=== PATIENT | female | born 1985 | race Caucasian/White ===

== ENCOUNTER 2016-07-30 18:49 | Emergency (ER) | payer OTHER ==
[~2016-07-30] VITALS: Ht 175.3 cm; Wt 61.0 kg
[2016-07-30 19:10] VITALS: Ht 175.3 cm; Wt 61.0 kg
[2016-07-30] MEDS ORDERED: SOD CHLORIDE 0.9% 1,000 ML IV STA (20:52)
[2016-07-30] MEDS ORDERED: ACETAMINOPHEN 325 MG TAB PO STA (20:52)
[2016-07-30] MEDS ORDERED: ACETAMINOPHEN 500 MG TAB ONE (21:16)
[2016-07-30 21:23] LABS: EOSINOPHILS % 0.1 % (0.0-7.0); HEMOGLOBIN 10.9 g/dl (12.0-16.0); LYMPHOCYTES # 0.7 10^3/ul (0.8-2.9); LYMPHOCYTES % 4.1 % (15.0-51.0); MEAN CORPUSCULAR HEMOGLOBIN 19.6 pg (29.0-33.0); MEAN CORPUSCULAR VOLUME 63.1 fl (82.0-101.0); MEAN PLATELET VOLUME 8.6 fl (7.4-10.4); MONOCYTES % 10.9 % (0.0-11.0); NEUTROPHIL # 15.3 10^3/ul (1.6-7.5); NEUTROPHILS % 84.9 % (39.0-77.0); PLATELET COUNT 245 10^3/UL (140-440); RED BLOOD COUNT 5.54 10^6/ul (4.20-5.40); RED CELL DISTRIBUTION WIDTH 24.9 % (11.5-14.5)
[2016-07-30 21:26] LABS: CONDITION 1; LH ANALYZER COMMENTS 1; SUSPECT 1
[2016-07-30 22:11] LABS: ALBUMIN 3.9 g/dl (3.3-4.9); POTASSIUM 3.7 mmol/L (3.5-5.1)
[2016-07-30 22:13] LABS: BILIRUBIN,INDIRECT 0.4 mg/dl (0-1.1); BILIRUBIN,TOTAL 0.4 mg/dl (0.2-1.3); CREATININE 0.53 mg/dl (0.44-1.00)
[2016-07-30 22:14] LABS: ALBUMIN/GLOBULIN RATIO 1.11; CALCIUM 9.1 mg/dl (8.4-10.2); TOTAL PROTEIN 7.4 g/dl (6.1-8.1)
--- NOTE | 2016-07-30 22:20 | RADRPT ---
PROCEDURE: US OB. US OB Transabd 1St Tri CLINICAL INDICATION: fever, lower back pain TECHNIQUE: Transabdominal and transvaginal views of the pelvis are available for review. COMPARISON: No prior studies are available for comparison. FINDINGS: The uterus demonstrates a gestational sac, with mean sac diameter measuring 4.8 cm. There is a feta l pole identified. A yolk sac is noted. There is a moderate subchorionic bleed, 2.7 x 2.6 cm. Ther e are 2 large uterine fibroids, up to 8.4 cm. [place]-rump length:4.4 cm heart rate:179 beats per minute Ultrasound estimated gestational age:11 weeks and 0 days Estimated delivery date 02/18/2017. Estimated delivery date by last menstrual period 02/16/2017. No ovarian or adnexal mass lesion is seen. There is a left ovarian cyst, 10 mm. IMPRESSION: 1. Single live intrauterine with an estimated gestational age of 11 weeks and 0 days. T here is a moderate subchorionic bleed, 2.7 cm. RPTAT: HBST .Carlos Arcos MD, MD Date Time Electronically viewed and signed by .Carlos Arcos MD, on 07/30/2016 22:20 .T/
[2016-07-30 22:43] LABS: ADD UMIC YES; URINE BILIRUBIN (Dip) NEGATIVE (NEGATIVE); URINE BLOOD (Dip) 3+ (NEGATIVE); URINE COLOR LT. YELLOW (YELLOW); URINE GLUCOSE (Dip) NEGATIVE (NEGATIVE); URINE KETONES (Dip) 15 (NEGATIVE); URINE LEUKOCYTE ESTERASE (Dip) 1+ (NEGATIVE); URINE NITRITE (Dip) POSITIVE (NEGATIVE); URINE TOTAL PROTEIN (Dip) TRACE (NEGATIVE); URINE UROBILINOGEN (Dip) 0.2 E.U./dL (0.1-1.0)
[2016-07-30 22:54] LABS: BACTERIA,URINE MANY; SQUAMOUS EPITHELIAL CELL,UR FEW
[2016-07-30] MEDS ORDERED: CEFTRIAXONE 2 GM/50 ML (PMX) 50 ML IVPB STA (23:00)
[2016-07-30] MEDS ORDERED: ACET-2047 PO (23:04)
[2016-07-30] MEDS ORDERED: CEPH500C PO (23:04)
--- NOTE | 2016-07-30 23:36 | ERD ---
ER Documentation Chief Complaint Date/Time DATE: 07/30/16 TIME: 23:31 Chief Complaint fever and 11 weeks . HPI This is a female patient who states she is 11 weeks presenting to the emergency department complaining of fever since late last night. Patient complains of body aches and lower back pain. She denies any cough, dysuria, abdominal pain, vaginal bleeding, chest pain. Patient denies any vomiting, diarrhea. 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 ROS All systems reviewed and are negative except as per history of present illness. Medications Home Meds Active Scripts Acetaminophen* (Acetaminophen*) 650 Mg Tablet, 650 MG PO Q4H WHILE AWAKE Y for PAIN AND OR ELEVATED TEMP, #30 TAB Prov:LUISITO ANTHONY PA-C 07/30/16 Cephalexin* (Cephalexin*) 500 Mg Capsule, 500 MG PO Q6 for 14 Days, CAP Prov:LUISITO ANTHONY PA-C 07/30/16 PMhx/Soc Medical and Surgical Hx: pt denies Medical Hx, pt denies Surgical Hx History of Surgery: No Anesthesia Reaction: No Hx Neurological Disorder: No Hx Respiratory Disorders: No Hx Cardiac Disorders: No Hx Psychiatric Problems: No Hx Miscellaneous Medical Probl: No Hx Alcohol Use: No Hx Substance Use: No Hx Tobacco Use: No Smoking Status: Never smoker Physical Exam Vitals Vital Signs Date Time Temp Pulse Resp B/P Pulse Ox O2 Delivery O2 Flow Rate FiO2 07/30/16 19:10 100.6 117 16 103/59 100 Physical Exam GENERAL: well-developed/well-nourished, in no apparent distress, non-toxic appearing HENT: NC/AT, moist mucous membranes EYES: Conjunctiva normal NECK: Supple, no lymphadenopathy PULM: CTA bilaterally, no rales, rhonchi, or wheezing heard CV: Normal S1S2, RRR, good capillary refill GI: Soft, non-distended, tender to palpation bilateral flank Normal bowel sounds, no masses or organomegaly felt on exam No gross peritonitis, no bruits Negative Rovsing, negative [place], negative McBurney's point, Negative CVAT BACK: No masses EXT: No clubbing, cyanosis, or edema NEURO: Alert and Orientated SKIN: Intact, normal turgor PSYCH: Normal mood and mentation Result Diagram: 07/30/16211007/30/162146 Results 24 hrs Laboratory Tests Test 07/30/16 21:11 07/30/16 21:47 07/30/16 22:00 Basophils # 0.010^3/ul Basophils % 0.0% Beta HCG, Quantitative 56313.0mIU/ml Blood Morphology Comment Eosinophils # 0.010^3/ul Eosinophils % 0.1% Hematocrit 35.0% Hemoglobin 10.9g/dl Lymphocytes # 0.710^3/ul Lymphocytes % 4.1% Mean Corpuscular Hemoglobin 19.6pg Mean Corpuscular Hemoglobin Concent 31.0g/dl Mean Corpuscular Volume 63.1fl Mean Platelet Volume 8.6fl Monocytes # 2.010^3/ul Monocytes % 10.9% Neutrophils # 15.310^3/ul Neutrophils % 84.9% Nucleated Red Blood Cells # 0.010^3/ul Nucleated Red Blood Cells % 0.0/100WBC Platelet Count 61586^3/UL Red Blood Count 5.5410^6/ul Red Cell Distribution Width 24.9% White Blood Count 18.010^3/ul Alanine Aminotransferase (ALT/SGPT) 16IU/L Albumin 3.9g/dl Albumin/Globulin Ratio 1.11 Alkaline Phosphatase 46IU/L Anion Gap 16 Aspartate Amino Transf (AST/SGOT) 13IU/L Blood Urea Nitrogen 6mg/dl Calcium Level 9.1mg/dl Carbon Dioxide Level 22mmol/L Chloride Level 102mmol/L Creatinine 0.53mg/dl Direct Bilirubin 0.00mg/dl Globulin 3.50g/dl Glucose Level 100mg/dl Indirect Bilirubin 0.4mg/dl Lactic Acid Level 1.3mmol/L Lipase 33U/L Potassium Level 3.7mmol/L Sodium Level 136mmol/L Total Bilirubin 0.4mg/dl Total Protein 7.4g/dl Urine Bacteria MANY Urine Bilirubin NEGATIVE Urine Clarity CLOUDY Urine Color LT. YELLOW Urine Glucose NEGATIVE% Urine Hemoglobin 3+ Urine Ketones 15 Urine Leukocyte Esterase 1+ Urine Microscopic RBC 5-10/HPF Urine Microscopic WBC 10-25/HPF Urine Nitrite POSITIVE Urine Specific [place] 1.010 Urine Squamous Epithelial Cells FEW Urine Total Protein TRACE Urine Urobilinogen 0.2 E.U./dL Urine pH 6.0 Current Medications Medications (Trade) Dose Ordered Sig/Castro Route PRN Reason Start Time Stop Time Status Last Admin Dose Admin Sodium Chloride (NS) 1,000 ml @ 1,000 mls/hr Q1H STAT IV 07/30/16 20:52 07/30/16 21:51 DC 07/30/16 21:11 Acetaminophen (Tylenol Tab) 1,000 mg ONCE STAT PO 07/30/16 20:52 07/30/16 20:54 DC 07/30/16 21:19 Acetaminophen 500 mg 500 mg STK-MED ONCE .ROUTE 07/30/16 21:16 07/30/16 21:17 DC Ceftriaxone Sodium (Rocephin) 50 ml @ 100 mls/hr ONCE STAT IVPB 07/30/16 23:00 07/30/16 23:29 DC 07/30/16 23:34 Procedures/MDM This is a 30-year-old female who is 11 weeks presents to the emergency room with fever and flank pain, likely due to acute cystitis with ascending route and hematuria. I have considered pyelonephritis, patient appears to be appropriate for outpatient antibiotics and does not require admission at this time. On examination, patient was febrile and tachycardiac. She had tenderness to palpation of bilateral flank, she didn't appear to have costovertebral angle tenderness. IV access was established. Patient was given 1 L fluids and 1gram of Tylenol with improvement of symptoms. Lab work was drawn. Patient's WBC was elevated at 18, no significant anemia. CMP did not show any evidence of renal, liver, or electrolyte abnormalities. Lipase was normal. Beta [place]CG was [address]. OB ultrasound was done, radiologist stated: Single live intrauterine with an estimated gestational age of 11 weeks and 0 days. There is a moderate subchorionic bleed, 2.7 cm. Patient's UA showed positive nitrite, +1 leukocyte esterase, 10-25 WBC and +3 hemoglobin. Urine culture was sent out. Patient was given 2 g of ceftriaxone IVPB and was given a prescription for Keflex for 14 days. I have consulted my supervising physician Dr. Birmingham regarding this case who advised this plan. I have discussed with the patient to return in 8 hours for reexamination or sooner if condition worsens. Patient agrees that she wants to try the outpatient antibiotics and she will return in 8 hours. Patient has stable vital signs at discharge, she appears well with a lot of improvement. Strict return precautions were given. Patient understands and agrees with this plan Departure Diagnosis: Primary Impression: Acute cystitis during Trimester: first trimester Qualified Code: O23.11 - Acute cystitis during , first trimester Additional Impression: Fever Fever type: unspecified Qualified Code: R50.9 - Fever, unspecified fever cause Condition: Stable Patient Instructions: Understanding Urinary Tract Infections (UTIs), Fever Control (Adult) Referrals: GWEN GOMEZ MD (PCP) Additional Instructions: FOLLOW UP WITH YOUR PRIMARY CARE PHYSICIAN OR RETURN TO THIS FACILITY IN 8 HOURS FOR FOLLOW-UP Take all medicines as directed. Return to this facility if you are not improving as expected. LUISITO ANTHONY PA-C Jul 30, 2016 23:36
[2016-07-31 00:52] VITALS: BP 117/63; PULSE 72; RESP 16; TEMP 99
== END 2016-07-31 01:17 | disposition home or self-care (01) ==
LOC: FTE 18:49
DX: O23.11 Infections of bladder in pregnancy, first trimester (principal); R50.9 Fever, unspecified; R10.2 Pelvic and perineal pain; Z3A.11 11 weeks gestation of pregnancy
CPT/HCPCS: 36415; 76801; 80053; 81001; 83605; 83690; 84702; 85025; 86900; 86901; 87040; 87086; 96361; 96374; J0696; J7030; Z7502; Z7610; 81003

== ENCOUNTER 2017-02-05 14:15 | Outpatient (CLI) | payer OTHER ==
[~2017-02-05] VITALS: Ht 175.3 cm; Wt 78.2 kg
[~2017-02-05 14:15] MED LIST: ACET-2047 PO; CEPH500C PO
[2017-02-05 14:39] VITALS: Ht 175.3 cm; Wt 78.2 kg
--- NOTE | 2017-02-05 14:45 | RADRPT ---
PROCEDURE: OB ultrasound CLINICAL INDICATION: Decreased movement TECHNIQUE: Multiple transverse and longitudinal OB images of the pelvis were obtained. The images were reviewed on a high-resolution PACS workstation. COMPARISON: 07/30/2016 FINDINGS: A single live intrauterine is seen. The presentation is vertex. The placenta is grade 2 a nd left lateral in location. No evidence of placenta abruption or previa is seen. The heart ra te is 144 beats per minute. The amniotic fluid index is 13.5 cm. movement 2 tone 2 breathing 2 Amniotic fluid 2 IMPRESSION: Biophysical profile of 01/14. RPTAT: HPNM Physician Liam Date Time Electronically viewed and signed by Physician Liam on 02/05/2017 14:45 /
--- NOTE | 2017-02-05 16:34 | PN ---
Triage Information Date/Time February 05, 2017 Reason for visit: DFM Weeks of Gestation 38 weeks and 3 days /Para Diabetes: none Hypertention: none Additional information 31-year-old with IUP at 38 weeks and 3 days with care with Dr. Ace peralta presented with complaint of decreased movement. Patient denies any other complaint. Denies any uterine contraction, leaking of fluid or vaginal bleeding. Objective Heart Rate: 120's Contractions: >10 Minutes Apart Exam Const: [[place]] Head: [Atraumatic] Eyes: [Normal Conjunctiva] Abd: [Soft, non tender, non distended. Normal bowel sounds]. Risk gravid. Fundal size consistent with gestational age. Psych: [Normal Mood and Affect] NST: Category 1. there is a significant variable with quick recovery and then lead seen. Tracing is reactive BPP: 01/14 Disposition: Discharge Assessment/Plan Patient was reassured Follow-up in 3 days with clinic for testing including NST/BPP Labor precaution and kick count discussed. Patient verbalized understanding Follow-up with OB clinic within 24-48 hours after discharge from the hospital primary OB recommended. Patient verbalized understanding. HELIO SANCHEZ MD Feb 05, 2017 16:34
--- NOTE | 2017-02-05 16:58 | TRIAGE ---
OB Triage Datetime Report Generated by CPN: 02/05/2017 16:57 Datetime: 02/05/2017 15:33 EGA: 38.3 Datetime: 02/05/2017 14:55 Time of Arrival: 02/05/2017 14:09 Arrived By: Ambulatory Arrived From: Office Chief Complaint: Decreased movement Movement: Present Contractions: Denies/Absent Rupture of Membranes: Denies Vaginal Bleeding: Normal Show Vaginal Discharge: Denies Recent Sexual Intercouse: Denies Abdominal Trauma: Not Applicable Patient Complaints: None Provider Notified: Turner Initial Plan: SHERRY TRAN
== END 2017-02-05 16:25 | disposition home or self-care (01) ==
LOC: OBT 14:15 → L-D 14:18 → OBT 16:25
PROVIDERS: ATTEND Obstetrics & Gynecology
DX: O36.8130 Decreased fetal movements, third trimester, not applicable or unspecified (principal); Z3A.38 38 weeks gestation of pregnancy
CPT/HCPCS: 76818; G0463

== ENCOUNTER 2017-02-08 14:56 | Outpatient (CLI) | payer OTHER ==
[~2017-02-08] VITALS: Ht 175.3 cm; Wt 78.2 kg
[~2017-02-08 14:56] MED LIST changes: -CEPH500C PO
--- NOTE | 2017-02-08 15:59 | RADRPT ---
PROCEDURE: Obstetrical ultrasound for biophysical profile CLINICAL INDICATION: Biophysical profile. . TECHNIQUE: Obstetrical ultrasound of the uterus for biophysical profile. Transabdominal views are obtained. COMPARISON: 02/05/2017 FINDINGS: Single intrauterine gestation. Presentation: Cephalic. Placenta: Left lateral No evidence of placental abruption. No evidence of placenta previa. breathing movement = 2/2 tone = 2/2 motion = 2/2 LIZETTE = 2/2 LIZETTE = 15.9 cm heart rate: 150 beats per minute IMPRESSION: Single intrauterine gestation. Biophysical profile 01/14 RPTAT: AADD .Arik Newsome MD, MD Date Time Electronically viewed and signed by .Arik Newsome MD, on 02/08/2017 15:59 .B/
[2017-02-08 16:01] VITALS: Ht 175.3 cm; Wt 78.2 kg
[2017-02-08 16:02] VITALS: BP 104/69; PULSE 100; RESP 18
[2017-02-08] MEDS ORDERED: PRENAT PO (16:36)
[2017-02-08] MEDS ORDERED: FERR325C PO (16:36)
[2017-02-08] MEDS ORDERED: FOLI-49 PO (16:38)
--- NOTE | 2017-02-08 17:11 | CONS ---
Date/Time of Note Date/Time of Note DATE: 02/08/17 TIME: 17:05 Consultation Date/Type/Reason Admit Date/Time February 08, 2017 OB triage consult Reason for Consultation This patient is a 31 years old 1 para 0 with estimated date of confinement of February 16, 2017 which makes her 38 weeks and 6 days today. She came to triage clinic complaining of low movement. On examination she is a well-developed well-nourished at term patient her general vital signs are basically within normal limits with blood pressure 104/69, pulse rate 100, respiration 22 temperature 98.0 oxygen saturation 99% room temperature. heart tone is around 140% minute no vaginal discharge no evidence of rupture of membranes. heart rate tracing appears to be normal with the good variability occasional acceleration with no decelerations Constitutional: No chills, No diaphoresis, No disoriented, No febrile, No improved, No no complaints, No other, No poor po, No requiring IVF, No requiring O2 Eyes: No discharge, No no complaints, No other, No pain, No redness, No visual change ENT: No bleeding, No congestion, No discharge, No dysphagia, No no complaints, No other, No pain, No sore throat Respiratory: No cough, No no complaints, No other, No pain, No pleuritic pain, No shortness of breath, No sputum, No wheezing Cardiovascular: No chest pain, No edema, No lightheadedness, No no complaints, No orthopenea, No other, No palpitations, No paroxysmal nocturnal dyspnea Gastrointestinal: No blood, No constipation, No decreased appetite, No diarrhea , No flatus, No nausea, No no complaints, No other, No pain, No passing stool, No vomiting Genitourinary: other (Due to lack of any effective regular contractions the pelvic examination was not performed), No bleeding, No discharge, No dysuria, No flank pain, No hematuria, No no complaints Musculoskeletal: No back pain, No bone/joint pain, No neck pain, No no complaints, No other, No restricted range of motion, No swelling Skin: No bruising, No erythema, No laceration, No no complaints, No other, No pruritis, No rash, No skin lesions Neurologic: No confusion, No dizziness, No focal-weakness, No headache, No no complaints, No other, No seizure, No syncope Additional Comments On ultrasound study the report is single intrauterine gestation in cephalic presentation with biophysical profile of 01/14 and amniotic fluid index was reported 15.9 cm heart rate 150 bpm Disposition. With these normal finding patient was reassured and was discharged home to be followed in the clinic and to return to the clinic if any labor or vaginal bleeding or again feeling low movements. Social History Smoking Status: Never smoker Exam/Review of Systems Vital Signs Vitals Vital Signs Date Time Temp Pulse Resp B/P Pulse Ox O2 Delivery O2 Flow Rate FiO2 02/08/17 16:02 98.0 100 18 104/69 98 Room Air BEKA ALLEN MD Feb 08, 2017 17:11
--- NOTE | 2017-02-08 18:29 | TRIAGE ---
OB Triage Datetime Report Generated by CPN: 02/08/2017 18:29 Datetime: 02/08/2017 15:36 Labor Evaluation Frequency: IRREG Monitor Mode: External Duration (sec)2399: 50-90 Quality: Mild Pattern: Normal: <= 5 Contractions in 10 Minutes Resting Tone [place]: Relaxed Contraction Comments: PT DENIES FEELING UC'S AT THIS TIME Heart Rate FHR Baseline Rate: 145 Monitor Mode: External US Variability: Moderate 6-25 bpm Accelerations: 15X15 Decelerations: None Category: Category I Datetime: 02/05/2017 15:46 Labor Evaluation Frequency: OCC Monitor Mode: External Duration (sec)2399: 30-100 Quality: Moderate Pattern: Normal: <= 5 Contractions in 10 Minutes Resting Tone [place]: Relaxed Heart Rate FHR Baseline Rate: 135 Monitor Mode: External US FHR Baseline Changes: No Baseline Change Variability: Moderate 6-25 bpm Accelerations: 15X15 Decelerations: None Category: Category I Pain Assessment Pain Presence: None/Denies Datetime: 02/05/2017 15:33 Time of Arrival: 02/08/2017 14:20 EGA: 38.6 Arrived By: Ambulatory Arrived From: Home Chief Complaint: FOLLOW BPP AND NST FOR DECREASED MOVEMEMT Movement: Present Contractions: Denies/Absent Rupture of Membranes: Denies Vaginal Bleeding: None Vaginal Discharge: Denies Recent Sexual Intercouse: Denies Abdominal Trauma: Not Applicable Patient Complaints: None Additional Patient Complaints: PT STATES HISTORY OF BULDGING FIBROID Time Provider Notified: 02/08/2017 16:15 Provider Notified: DR. ALLEN Initial Plan: NST AND BPP Datetime: 02/05/2017 15:00 Assessment Type: Triage Maternal Assessment Level of Consciousness: Fully Conscious DTR's/Clonus: DTRs 2+; No Clonus Headache: Denies Blurred Vision: No Respiratory Effort: Unlabored; Regular Rhythm; Equal Expansion Breath Sounds, Left: Clear and Equal Breath Sounds, Right: Clear and Equal Nausea/Vomiting: Denies RUQ Epigastric Pain: Denies Lower Extremities Edema: None Degree: None Upper Extremities Edema: None Degree: None Facial Edema: None Fall Risk Assessment History of Falling: (0) No Secondary Diagnosis: (0) No Ambulatory Aid: (0) Bedrest/Nurse Assist IV Therapy: (0) No Gait: (0) Normal/Bedrest/Immobile Mental Status: (0) Oriented to Own Ability Fall Score: 0 Fall Risk Score Definition: No Risk: No action required Datetime: 02/05/2017 14:55 Time Provider Notified: 02/05/2017 15:33 Datetime: 02/05/2017 14:35 Stage of : OB Triage
== END 2017-02-08 16:45 | disposition home or self-care (01) ==
LOC: OBT 14:56 → L-D 14:59 → OBT 16:45
PROVIDERS: ATTEND Obstetrics & Gynecology
DX: O36.8130 Decreased fetal movements, third trimester, not applicable or unspecified (principal); Z3A.38 38 weeks gestation of pregnancy
CPT/HCPCS: 76818; Z7500; G0463

== ENCOUNTER 2017-02-12 14:18 | Outpatient (CLI) | payer OTHER ==
[~2017-02-12] VITALS: Ht 175.3 cm; Wt 78.1 kg
[~2017-02-12 14:18] MED LIST changes: +FERR325C PO; +FOLI-49 PO; +PRENAT PO
--- NOTE | 2017-02-12 15:03 | RADRPT ---
PROCEDURE: US OB biophysical profile. CLINICAL INDICATION: decreased movements TECHNIQUE: Multiple sonographic images of the pelvis were obtained. The images were reviewed on a PACS workstation. COMPARISON: 02/08/17 FINDINGS: There is a single viable intrauterine gestation. Cardiac activity is present with 142 beats per min ihsan. There is a vertex presentation. The placenta is left lateral. There is no evidence of placental abruption. There is a normal amount of amniotic fluid with an LIZETTE = 13.6 cm. Biophysical profile: movement 2/2 tone 2/2. breathing 2/2 LIZETTE 2/2 Total 01/14 RPTAT: AA . IMPRESSION: Normal biophysical profile. . .Gopal Lancaster MD, MD Date Time Electronically viewed and signed by .Gopal Lancaster MD, MD on 02/12/2017 15:02 .S/
[2017-02-12 15:15] VITALS: Ht 175.3 cm; Wt 78.1 kg
[2017-02-12 15:16] VITALS: BP 108/62; PULSE 86; RESP 18
--- NOTE | 2017-02-12 16:53 | PN ---
Triage Information Date/Time Reason for visit: Uterine contractions Weeks of Gestation 39+ /Para 1/0 Diabetes: none Hypertention: none Objective Vital Signs Date Time Temp Pulse Resp B/P Pulse Ox O2 Delivery O2 Flow Rate FiO2 02/12/17 15:16 98.2 86 18 108/62 95 Room Air Heart Rate: 140's Contractions: 6-10 Minutes Apart Disposition: Discharge Assessment/Plan Prevautions extensively discussed with patient is going to follow her up closely EVELYNE DUONG M.D. Feb 12, 2017 16:53
--- NOTE | 2017-02-12 17:00 | TRIAGE ---
OB Triage Datetime Report Generated by CPN: 02/12/2017 17:00 Datetime: 02/12/2017 16:11 Stage of : OB Triage Maternal Assessment Level of Consciousness: Fully Conscious Labor Evaluation Frequency: NONE Monitor Mode: External Resting Tone [place]: Relaxed Heart Rate FHR Baseline Rate: 135 Monitor Mode: External US Variability: Moderate 6-25 bpm Accelerations: 15X15 Decelerations: None Category: Category I Pain Assessment Pain Scale: 0 Pain Goal: 3 Vaginal Exam Membrane Status: Intact Vaginal Bleeding: None Datetime: 02/12/2017 15:12 Assessment Type: Triage Maternal Assessment Level of Consciousness: Fully Conscious DTR's/Clonus: DTRs 2+; No Clonus Headache: Denies Blurred Vision: No Respiratory Effort: Unlabored; Regular Rhythm; Equal Expansion Breath Sounds, Left: Clear and Equal Breath Sounds, Right: Clear and Equal Nausea/Vomiting: Denies RUQ Epigastric Pain: Denies Lower Extremities Edema: None Degree: None Upper Extremities Edema: None Degree: None Facial Edema: None Fall Risk Assessment History of Falling: (0) No Secondary Diagnosis: (0) No Ambulatory Aid: (0) Bedrest/Nurse Assist IV Therapy: (0) No Gait: (0) Normal/Bedrest/Immobile Mental Status: (0) Oriented to Own Ability Fall Score: 0 Fall Risk Score Definition: No Risk: No action required Datetime: 02/12/2017 15:11 Time of Arrival: 02/12/2017 14:13 EGA: 39.3 Arrived By: Ambulatory Arrived From: Dr. Wu Chief Complaint: pt sent in FOR NST/BPP FOR UC'S Movement: Present Contractions: Denies/Absent Rupture of Membranes: Denies Vaginal Bleeding: None Vaginal Discharge: Denies Recent Sexual Intercouse: Denies Abdominal Trauma: Not Applicable Patient Complaints: None Time Provider Notified: 02/12/2017 15:00 Provider Notified: ABUSLEME Initial Plan: NST/BPP Datetime: 02/12/2017 15:09 Monitor Mode: External Monitor Mode: External US Datetime: 02/12/2017 14:40 Monitor Mode: External Monitor Mode: External US Datetime: 02/05/2017 15:33 EGA: 38.6 Datetime: 02/05/2017 15:00 Fall Score: 0 Fall Risk Score Definition: No Risk: No action required
== END 2017-02-12 17:10 | disposition home or self-care (01) ==
LOC: OBT 14:18 → L-D 14:18 → OBT 17:10
PROVIDERS: ATTEND Obstetrics & Gynecology
DX: O62.9 Abnormality of forces of labor, unspecified (principal); Z3A.39 39 weeks gestation of pregnancy
CPT/HCPCS: 76818; Z7500; G0463

== ENCOUNTER 2017-02-20 11:38 | Outpatient (CLI) | payer OTHER ==
[~2017-02-20] VITALS: Ht 175.3 cm; Wt 82.0 kg
[~2017-02-20 11:38] MED LIST changes: -ACET-2047 PO; -FERR325C PO
[2017-02-20 11:47] VITALS: Ht 175.3 cm; Wt 82.0 kg
[2017-02-20 11:48] VITALS: BP 112/67; PULSE 88
--- NOTE | 2017-02-20 12:28 | RADRPT ---
PROCEDURE: US OB biophysical profile. CLINICAL INDICATION: evaluation, decreased movement TECHNIQUE: Multiple sonographic images of the pelvis were obtained. The images were reviewed on a PACS workstation. COMPARISON: No prior studies are available for comparison. FINDINGS: There is a single viable intrauterine gestation. Cardiac activity is present with 139 beats per min ihsan. There is a vertex presentation. The placenta is left lateral in location. There is no evidence of placental abruption. There is a normal amount of amniotic fluid with an LIZETTE = 15.8 cm. Biophysical profile: movement 2/2 tone 2/2. breathing 2/2 LIZETTE 2/2 Total 01/14 RPTAT: AA . IMPRESSION: Normal biophysical profile. Physician Fabby Date Time Electronically viewed and signed by Physician Fabby on 02/20/2017 12:28 /
--- NOTE | 2017-02-20 16:38 | QN ---
Documentation Comment ipu 40 weeks DFM nst reacive a/p iup 40 weeks for induction today VARUN KUMAR MD Feb 20, 2017 16:38
--- NOTE | 2017-02-20 18:28 | TRIAGE ---
OB Triage Datetime Report Generated by CPN: 02/20/2017 18:28 Datetime: 02/20/2017 13:16 Stage of : OB Triage Datetime: 02/20/2017 13:11 Labor Evaluation Frequency: 0 Monitor Mode: External Pattern: Normal: <= 5 Contractions in 10 Minutes Resting Tone [place]: Relaxed Heart Rate FHR Baseline Rate: 135 Monitor Mode: External US Variability: Moderate 6-25 bpm Accelerations: 10X10 Decelerations: None Category: Category I Pain Assessment Pain Scale: 0 Pain Presence: None/Denies Pain Type: N/A Pain Goal: 3 Pain Relief Measures: Comfort Measures Datetime: 02/20/2017 12:51 Stage of : OB Triage Datetime: 02/20/2017 12:14 Stage of : OB Triage Assessment Type: Triage Maternal Assessment Level of Consciousness: Fully Conscious DTR's/Clonus: DTRs 2+; No Clonus Headache: Denies Blurred Vision: No Respiratory Effort: Unlabored; Regular Rhythm; Equal Expansion Breath Sounds, Left: Clear and Equal Breath Sounds, Right: Clear and Equal Nausea/Vomiting: Denies RUQ Epigastric Pain: Denies Facial Edema: None Temperature Route: Axillary Fall Risk Assessment History of Falling: (0) No Secondary Diagnosis: (0) No Ambulatory Aid: (0) Bedrest/Nurse Assist IV Therapy: (0) No Gait: (0) Normal/Bedrest/Immobile Mental Status: (0) Oriented to Own Ability Fall Score: 0 Fall Risk Score Definition: No Risk: No action required Labor Evaluation Frequency: 0 Monitor Mode: External Pattern: Normal: <= 5 Contractions in 10 Minutes Resting Tone [place]: Relaxed Heart Rate FHR Baseline Rate: 135 Monitor Mode: External US Variability: Moderate 6-25 bpm Decelerations: None Pain Assessment Pain Scale: 0 Pain Presence: None/Denies Pain Type: N/A Pain Goal: 3 Pain Relief Measures: Comfort Measures Datetime: 02/20/2017 12:13 Time of Arrival: 02/20/2017 11:25 EGA: 40.4 Arrived By: Ambulatory Arrived From: Home Chief Complaint: FOLLOW UP BPP/NST FOR DFM/POST DATES Movement: Present Contractions: Denies/Absent Rupture of Membranes: Denies Vaginal Bleeding: None Vaginal Discharge: Denies Recent Sexual Intercouse: Denies Abdominal Trauma: Not Applicable Patient Complaints: None Time Provider Notified: 02/20/2017 12:51 Provider Notified: [email or web address] Initial Plan: MONITOR, BPP/NST Datetime: 02/12/2017 16:58 Vaginal Exam Dilatation (cms): 1.0 Effacement (%): 40 Station: -2 Exam By: HANNAH Vaginal Bleeding: None Cervix, Consistency: Firm Cervix, Position: Midposition Datetime: 02/12/2017 15:12 Fall Score: 0 Fall Risk Score Definition: No Risk: No action required Datetime: 02/12/2017 15:11 EGA: 39.3 Datetime: 02/05/2017 15:33 EGA: 38.6 Datetime: 02/05/2017 15:00 Fall Score: 0 Fall Risk Score Definition: No Risk: No action required
== END 2017-02-20 14:00 | disposition home or self-care (01) ==
LOC: OBT 11:38 → L-D 11:38 → OBT 14:00
PROVIDERS: ATTEND Obstetrics & Gynecology
DX: O36.8130 Decreased fetal movements, third trimester, not applicable or unspecified (principal); Z3A.40 40 weeks gestation of pregnancy
CPT/HCPCS: 76818; Z7500; G0463

== ENCOUNTER 2017-02-20 14:58 | Inpatient (IN) | payer OTHER ==
[~2017-02-20] VITALS: Ht 175.3 cm; Wt 81.9 kg
[2017-02-20 20:30] VITALS: BP 117/59; PULSE 91; RESP 18; Ht 175.3 cm; Wt 81.9 kg
[2017-02-20] MEDS ORDERED: DINOPROSTONE 10 MG VAG SUPP VAG ONE (21:30)
[2017-02-20 21:41] LABS: BASOPHILS % 0.3 % (0.0-2.0); EOSINOPHILS # 0.1 10^3/ul (0.0-0.5); EOSINOPHILS % 0.9 % (0.0-7.0); HEMATOCRIT 36.1 % (37.0-47.0); HEMOGLOBIN 11.8 g/dl (12.0-16.0); LYMPHOCYTES # 1.4 10^3/ul (0.8-2.9); LYMPHOCYTES % 14.2 % (15.0-51.0); MEAN CORPUSCULAR HEMOGLOBIN 26.1 pg (29.0-33.0); MEAN CORPUSCULAR HGB CONC 32.7 g/dl (32.0-37.0); MEAN CORPUSCULAR VOLUME 79.9 fl (82.0-101.0); MEAN PLATELET VOLUME 10.9 fl (7.4-10.4); MONOCYTES % 9.5 % (0.0-11.0); NEUTROPHIL # 7.4 10^3/ul (1.6-7.5); NEUTROPHILS % 74.1 % (39.0-77.0); PLATELET COUNT 170 10^3/UL (140-415); RED BLOOD COUNT 4.52 10^6/ul (4.20-5.40); RED CELL DISTRIBUTION WIDTH 16.6 % (11.5-14.5)
[2017-02-20] MEDS: LACTATED RINGER'S 1,000 ML IV SCH (21:43)
[2017-02-20] MEDS ORDERED: BUTORPHANOL 2 MG INJ IV PRN (22:00)
[2017-02-20] MEDS ORDERED: CARBOPROST 250 MCG INJ IM PRN (22:00)
[2017-02-20] MEDS ORDERED: OXYTOCIN 30 UNITS/LR 500 ML IV PRN (22:00)
[2017-02-20] MEDS ORDERED: LIDOCAINE 1% (MPF) 30 ML INJ INJ PRN (22:00)
[2017-02-20] MEDS ORDERED: METHYLERGONOVINE 0.2 MG INJ IM PRN (22:00)
[2017-02-20] MEDS ORDERED: OXYTOCIN 30 UNITS/LR 500 ML IV SCH ×2 (22:00)
[2017-02-20] MEDS ORDERED: IBUPROFEN 600 MG TAB PO PRN (22:00)
[2017-02-20] MEDS ORDERED: MISOPROSTOL 200 MCG TAB PR PRN (22:00)
[2017-02-20 22:03] LABS: INR 0.91; PROTIME 12.2 Sec (12.2-14.2)
[2017-02-20 22:04] LABS: PARTIAL THROMBOPLASTIN TIME 31.3 Sec (25.0-35.0)
[2017-02-21] MEDS: LACTATED RINGER'S 1,000 ML IV SCH ×2 (05:32→13:13)
[2017-02-21] MEDS ORDERED: LACTATED RINGER'S 1,000 ML IV PRN (07:00)
[2017-02-21] MEDS ORDERED: DINOPROSTONE 10 MG VAG SUPP VAG ONE (11:30)
--- NOTE | 2017-02-21 15:11 | HP ---
Date/Time of Note Date/Time of Note DATE: 02/21/17 TIME: 15:06 OB - History Hx of Present Free Text/Dictation 31 YEARS OLD EARLY LABOR AT 40.5 WEEKS OF ADMITTED FOR DELIVERY AND AUGMENTATION OF LABOR Last Menstrual Period: May 12, 2016 Estimated Due Date: Feb 16, 2017 : 1 Para: 0 Care: Good Care Ultrasounds: Normal mid trimester US Obstetrical Complications: None Medical Complications: None Other Concerns: LARGE FIBROID UTERUS Past Family/Social History * Past Medical, Surgical, Family and Obstetric Histories reviewed from chart. Blood Type: B+ Rubella: immune RPR/VDRL: Negative GBS Status: Negative HBsAG: Negative OB Admission Exam Vital Signs Vital Signs Vital Signs Date Time Temp Pulse Resp B/P Pulse Ox O2 Delivery O2 Flow Rate FiO2 02/20/17 20:30 98.1 91 18 117/59 Physical Exam HEENT: WNL Heart: Rhythm Normal Lungs: Clear, Equal Abdomen: WNL Extremities: Normal Reflexes: Normal Cervical Dilatation: 1cm Effacement: 50% Station: -2 Membranes: Intact Heart Rate: 130's Accelerations: Accelerations Present Decelerations: No Decelerations Varibility: Marked Contractions on Admission: 6-10 Minutes Apart Intensity: Mild Last 72 hours Lab Results CBC & BMP 02/20/17 21:25 OB Assessment/Plan Reason for admission: induction of labor Induction Method: per Misoprostol Protocol GWEN GOMEZ MD Feb 21, 2017 15:11
[2017-02-21] MEDS ORDERED: DIPHENHYDRAMINE 50 MG INJ IV PRN (22:00)
[2017-02-21] MEDS ORDERED: OXYTOCIN 30 UNITS/LR 500 ML IV SCH (22:00)
[2017-02-21] MEDS ORDERED: ONDANSETRON 4 MG INJ IV PRN (22:00)
[2017-02-21] MEDS ORDERED: NALOXONE (0.4 MG/ML) INJ IV PRN (22:00)
[2017-02-21] MEDS ORDERED: FENTAnyl 2MCG/ML-ROPIV 0.2% 100 ML BAG EPI SCH (22:00)
[2017-02-22] MEDS: LACTATED RINGER'S 1,000 ML IV SCH ×3 (03:13→20:31)
[2017-02-22] MEDS ORDERED: OXYTOCIN 10 UNIT INJ ONE (07:00)
[2017-02-22] MEDS ORDERED: CEFAZOLIN 1 GM INJ ONE (07:00)
--- NOTE | 2017-02-22 09:17 | PN ---
Date/Time of Note Date/Time of Note DATE: 02/22/17 TIME: 09:13 OB Subjective Subjective Subjective Patient is at 7 cm dilatation -1 -2 station with some variable decelerations and some late decelerations not regularly. Rupture membranes were done with clear fluid Amnioinfusion was started. Pitocin was decreased It seems that this maneuver controlled the variable decelerations. Patient is stable at this time GWEN GOMEZ MD Feb 22, 2017 09:17
[2017-02-22] MEDS ORDERED: CEFAZOLIN 2 GM/50 ML (PMX) 50 ML IV SCH (10:00)
[2017-02-22] MEDS ORDERED: OXYTOCIN 30 UNITS/LR 500 ML IV SCH (10:05)
[2017-02-22] MEDS ORDERED: FENTAnyl 50 MCG/ML VIAL ONE (10:05)
[2017-02-22] MEDS ORDERED: OXYTOCIN 30 UNITS/LR 500 ML IV PRN (10:30)
[2017-02-22] MEDS: CEFAZOLIN 2 GM/50 ML (PMX) 50 ML IV SCH ×2 (10:30→18:06)
[2017-02-22] MEDS ORDERED: LANOLIN 7 GM TUBE TOP PRN (10:30)
[2017-02-22] MEDS ORDERED: CARBOPROST 250 MCG INJ IM PRN (10:30)
[2017-02-22] MEDS ORDERED: HYDROCODONE/APAP (5/325) TAB PO PRN (10:30)
[2017-02-22] MEDS ORDERED: MISOPROSTOL 200 MCG TAB PR PRN (10:30)
[2017-02-22] MEDS ORDERED: NA PHOSPHATE/BIPHOS 133 ML ENEMA PR PRN (10:30)
[2017-02-22] MEDS ORDERED: METHYLERGONOVINE 0.2 MG INJ IM PRN (10:30)
[2017-02-22] MEDS ORDERED: METHYLERGONOVINE 0.2 MG TAB PO PRN (10:30)
[2017-02-22] MEDS ORDERED: LIDOCAINE 2%/EPI 30 ML INJ ONE (10:31)
[2017-02-22] MEDS ORDERED: SODIUM BICARBONATE (IV ADD) 50 ML ONE (10:31)
[2017-02-22] MEDS ORDERED: ONDANSETRON 4 MG INJ ONE (10:32)
[2017-02-22] MEDS ORDERED: DEXAMETHASONE 4 MG/ML 1 ML INJ ONE (10:32)
[2017-02-22] MEDS ORDERED: morphine SULFATE/PF (10 MG/10 ML) INJ ONE (10:32)
[2017-02-22 10:56] LABS: Arterial Cord Blood pCO2 47.1 mmHG (25-50); CBA Base Excess -0.5 mmol/L; CBA Oxygen Sat 47.7 mmHG; CBA Total Hemglobin 16.3 g/dl; Fraction OxyHgb Cord Arterial 46.4 %; MODE ROOM AIR; MetHgb Cord Arterial 1.9 %; Sample Type CBA
[2017-02-22 10:56] LABS: CBV Base Excess -1.3 mmol/L; CBV COHb 0.3 %; CBV Total Hemglobin 15.8 g/dl; Cord Blood Venous AADO2 70.7 mmHg; Cord Blood Venous pO2 10.7 mmHG (15.0-45.0); Fraction OxyHgb Cord Venous 12.6 %; MODE ROOM AIR; MetHgb Cord Venous 2.4 %; Sample Type CBV
--- NOTE | 2017-02-22 11:53 | PREOPHP ---
DATE OF ADMISSION: 02/20/2017 HISTORY OF PRESENT ILLNESS: This is a 31-year-old female, 1, para 0. Patient's last menstrual period was May 12, 2016. The due date was February 16, 2017. This patient with a history of a large fibroid. She had been induced and augmented. She came in at 40.5 weeks of gestation on February 20 with contractions and augmentation of labor was to be done. The patient labored on the . The 16 in the morning, she started having variable decelerations. She is at 7 cm dilatation at -1 station. Numbing infusion had been done and the baby does not progress in the descent of the presentation. She is at 7 cm still after a few hours, and with an amnio infusion she is still having variable decelerations with late component with every single contraction, no matter what position she is on, back or either side and a primary section will be performed. FAMILY HISTORY: Unremarkable. PAST MEDICAL HISTORY: She has a fibroid uterus only. Otherwise she is a healthy girl. Never had any surgeries. No medical antecedent. PHYSICAL EXAMINATION: VITAL SIGNS: The patient is stable. Blood pressure is 110/80, pulse is 80, respirations 16. HEENT: Head is normal. NECK: Normal. CHEST: Clear. HEART: Normal sinus rhythm. LUNGS: Clear. BREASTS: Soft, nontender no masses. ABDOMEN: Soft. Uterus at 40 weeks and 6 days of with a fibroid that is palpated on the anterior area, right-sided of the uterus. The cervix is 7 cm with 90 percent effacement within amnio infusion, -1 station. EXTREMITIES: Normal with normal pulses. No edema. Normal reflexes. ASSESSMENT AND PLAN: With a diagnosis of term , no progress of labor, nonreassuring heart tones, she is undergoing a primary section. She has been advised of the possible risks and possible complications of the procedure with her alternatives and options. Written information was provided. She had no more questions, and agreed to go ahead with the procedure with full understanding and no more questions. Dictated By: Alina Tompkins MD /[email or web address]/daija /Document#: [id number]
--- NOTE | 2017-02-22 12:09 | OPR ---
Date/Time of Note Date/Time of Note DATE: 02/22/17 TIME: 11:59 Operative Report Procedure Date: Feb 22, 2017 Preoperative Diagnosis 40-6/7 weeks of . No progress of labor. Nonreassuring heart tones. Variable decelerations. Large fibroid uterus Postoperative Diagnosis Same plus baby girl 9, cord around the right shoulder. Huge posterior uterine fibroid about 15 cm in diameter on the lower part of the posterior area of the uterus. 2 anterior fibroids superior to the fundus and slightly right-sided and lower area.. Right sided uterine torsion due to fibroids Operation Performed Primary low segment transverse section Surgeon barbara gomez Frickertron Checker: RIZWANA DIAZ MD Anesthesia Type: spinal Anesthesiologist: JOSE LUIS BROWN Estimated Blood Loss: other Transfusion Required: no Specimens Placenta Grafts/Implants: none Complications: no Pt Condition Post Procedure: stable Disposition: PACU BARBARA GOMEZ MD Feb 22, 2017 12:09
[2017-02-22 14:00] VITALS: BP 101/63; PULSE 73; RESP 18
[2017-02-22 14:30] VITALS: BP 102/58; PULSE 65; RESP 18
[2017-02-22 15:00] VITALS: BP 103/60; PULSE 77; RESP 18
[2017-02-22 15:56] VITALS: BP 102/58; PULSE 65; RESP 18
[2017-02-22] MEDS: KETOROLAC 30 MG INJ IV SCH (16:11)
--- NOTE | 2017-02-22 17:43 | OPR ---
DATE OF OPERATION: 02/22/2017 OPERATION PERFORMED: Primary low segment transverse section. PREOPERATIVE DIAGNOSIS: at 40-6/7 weeks. No progress of labor. Nonreassuring heart tones. Variable decelerations. Large fibroid uterus. POSTOPERATIVE DIAGNOSIS: at 40-6/7 weeks. No progress of labor. Nonreassuring heart tones. Variable decelerations. Large fibroid uterus. Baby girl, 9, cord around the right shoulder. Cord pH 7.2. Large uterine fibroids, 15 cm and 5.6 cm. In the posterior area of the uterus is a 15 cm anteriorly, two of them about 5 cm in the fundus on the top, in the middle and in the right side. Right-sided torsion of the uterus as well. OPERATION PERFORMED: Primary low segment transverse section. SURGEON: Alina Tompkins MD [place] APPRENTICE: Dr. Reddy ANESTHESIOLOGIST: Dr. Miguel ANESTHESIA: Spinal. OPERATIVE PROCEDURE: She had an epidural anesthesia that was boosted up during labor that was boosted up for the section. A Yo catheter had been already in. The abdomen was prepped and draped, and 2 cm up the pubic bone a transverse incision was made. The uterus was opened in the midline with a scalpel. After opening of the abdominal cavity was done, the Adan retractor was placed in and the bladder flap was made. The uterus was opened in the midline with a scalpel and the incision was increased laterally on either side for about 3 inches. The baby's head was delivered followed by the body. There was a cord around the right shoulder of the baby that was passed through and the baby was handed over to the color worker team. The cord was clamped and cut. The baby was handed over and a piece of the cord was sent for cord pH. The cord blood was obtained. The uterus was contracted with Pitocin and the placenta was removed. A curette was used to remove the membranes that were very much attached on the fundal area, possibly trying to erode the layer of the myometrium. This was done with several scraping of the area until all the placental tissue was removed. The cavity appeared to be empty. The uterus was closed with a #1 Monocryl suture, imbedding the first line of suture with the same Monocryl, and interrupted sutures with #0-MH chromic were used for interrupted sutures for reinforcement. The hemostasis was good. Examination of the uterus revealed that the uterus was with a right torsion. There was a big fibroid in the front of the uterus about 5 cm in size. There was another one in the higher up position in the fundus of the uterus as well anteriorly, and there was a major one about 15 cm in the back of the uterus near the cervix in the middle. The adhesions that were felt in the back were not removed to prevent bleeding. The procedure was finished by cleaning the abdominal area and a piece of Interceed was placed in the area. The peritoneum was closed with a 2-0 Vicryl suture. The fascia was closed with an 0-MH suture, 2-0 Vicryl for the subcutaneous tissue, 3-0 Monocryl subcuticular to the skin. Steri-Strips were applied. The patient tolerated the procedure well and left the OR awake and stable. Sponge counts and instrument counts were correct, and intravenous antibiotics were given for prophylaxis. Dictated By: Alina Tompkins MD /lui/axel /Document#: [id number]
[2017-02-22] MEDS ORDERED: DIPHENHYDRAMINE 50 MG INJ IV PRN (18:30)
[2017-02-22] MEDS ORDERED: ONDANSETRON 4 MG INJ IV PRN (18:30)
[2017-02-22] MEDS ORDERED: NALOXONE (0.4 MG/ML) INJ IV PRN (18:30)
[2017-02-22] MEDS ORDERED: ZOLPIDEM 5 MG TAB PO PRN (18:30)
[2017-02-22] MEDS ORDERED: KETOROLAC 30 MG INJ IV PRN (18:30)
[2017-02-22] MEDS ORDERED: HYDROmorphONE 1 MG/ML SYG IV PRN ×2 (18:30)
[2017-02-22 20:00] VITALS: BP 114/62; PULSE 70; RESP 18
[2017-02-22] MEDS: SENNA/DOCUSATE NA (8.6MG/50MG) TAB PO SCH (21:26)
[2017-02-23] VITALS (7 sets, daily range): BP systolic 95–116; BP diastolic 53–61; PULSE 76–110; RESP 18
[2017-02-23] MEDS: CEFAZOLIN 2 GM/50 ML (PMX) 50 ML IV SCH (02:03)
[2017-02-23] MEDS: LACTATED RINGER'S 1,000 ML IV SCH (05:01)
[2017-02-23] MEDS: SENNA/DOCUSATE NA (8.6MG/50MG) TAB PO SCH ×2 (08:46→21:00)
[2017-02-23 09:04] LABS: BASOPHILS % 0.1 % (0.0-2.0); EOSINOPHILS # 0.1 10^3/ul (0.0-0.5); EOSINOPHILS % 0.5 % (0.0-7.0); HEMATOCRIT 29.1 % (37.0-47.0); HEMOGLOBIN 9.4 g/dl (12.0-16.0); LYMPHOCYTES # 2.1 10^3/ul (0.8-2.9); LYMPHOCYTES % 14.9 % (15.0-51.0); MEAN CORPUSCULAR HGB CONC 32.3 g/dl (32.0-37.0); MEAN CORPUSCULAR VOLUME 80.6 fl (82.0-101.0); MEAN PLATELET VOLUME 10.8 fl (7.4-10.4); MONOCYTE # 1.3 10^3/ul (0.3-0.9); MONOCYTES % 9.4 % (0.0-11.0); NEUTROPHIL # 10.3 10^3/ul (1.6-7.5); NEUTROPHILS % 74.5 % (39.0-77.0); RED BLOOD COUNT 3.61 10^6/ul (4.20-5.40); RED CELL DISTRIBUTION WIDTH 16.5 % (11.5-14.5); WHITE BLOOD COUNT 13.8 10^3/ul (4.8-10.8)
[2017-02-23 09:11] LABS: PLATELET COUNT 135 10^3/UL (140-415); POSITIVE DIFF @See below
[2017-02-23] MEDS: KETOROLAC 30 MG INJ IV SCH (11:58)
--- NOTE | 2017-02-23 13:44 | PN ---
Date/Time of Note Date/Time of Note DATE: 02/23/17 TIME: 13:43 Assessment/Plan Lines/Catheters IV Catheter Type (from Nrsg): Saline Lock Subjective 24 Hr Interval Summary day 1 post c/s afebrile, feels good. sleeping and resting now Constitutional: BM, ambulates, flatus, improved, no complaints, urine output Feeding: advancing diet Pain Control: well controlled Detailed Summary Eyes: no complaints ENT: no complaints Respiratory: no complaints Cardiovascular: no complaints Gastrointestinal: no complaints Genitourinary: no complaints Musculoskeletal: no complaints Skin: no complaints Neurologic: no complaints Endocrine: no complaints Lymphatic: no complaints Psychological: nl mood/affect, no complaints Immunologic: no complaints Exam/Review of Systems Vital Signs Vitals Vital Signs Date Time Temp Pulse Resp B/P Pulse Ox O2 Delivery O2 Flow Rate FiO2 02/23/17 08:38 98.3 79 18 100/59 Room Air 02/23/17 03:00 98 21 Intake and Output 02/22/17 02/22/17 02/23/17 15:00 23:00 07:00 Intake Total 125 ml 820 ml 1175 ml Output Total 1000 ml 900 ml 1300 ml Balance -875 ml -80 ml -125 ml Exam Constitutional: alert, oriented, well developed Psych: nl mood/affect, no complaints Head: atraumatic, normocephalic Eyes: EOMI, nl conjunctiva, nl lids, nl sclera ENMT: mucosa pink and moist, nl external ears & nose, nl lips & teeth, nl nasal mucosa & septum Neck: non-tender, supple Respiratory: clear to auscultation, normal air movement Cardiovascular: nl pulses, regular rate and rhythm Gastrointestinal: nl liver, spleen, non-tender, soft Musculoskeletal: nl extremities to inspection, nl gait and stance Extremities: normal pulses 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
[2017-02-23] MEDS ORDERED: BISACODYL (EC) 5 MG TAB PO ONE (14:00)
[2017-02-23] MEDS: HYDROCODONE/APAP (5/325) TAB PO PRN (15:12)
[2017-02-24 01:00] VITALS: BP 102/54; PULSE 99; RESP 18
[2017-02-24 04:00] VITALS: BP 111/58; PULSE 96; RESP 18
[2017-02-24] MEDS: HYDROCODONE/APAP (5/325) TAB PO PRN ×2 (06:09→09:59)
[2017-02-24 08:03] VITALS: BP 113/53; PULSE 78; RESP 18
--- NOTE | 2017-02-24 14:19 | PN ---
Date/Time of Note Date/Time of Note DATE: 02/24/17 TIME: 14:18 Assessment/Plan Lines/Catheters IV Catheter Type (from Nrsg): Saline Lock Subjective 24 Hr Interval Summary day 2 post c/s no complaints except for incisional pain and gases Constitutional: BM, ambulates, flatus, improved, no complaints, urine output Feeding: advancing diet Pain Control: mild Detailed Summary Eyes: no complaints ENT: no complaints Respiratory: no complaints Cardiovascular: no complaints Gastrointestinal: no complaints Genitourinary: no complaints Musculoskeletal: no complaints Skin: no complaints Neurologic: no complaints Endocrine: no complaints Lymphatic: no complaints Psychological: nl mood/affect, no complaints Immunologic: no complaints Exam/Review of Systems Vital Signs Vitals Vital Signs Date Time Temp Pulse Resp B/P Pulse Ox O2 Delivery O2 Flow Rate FiO2 02/24/17 08:03 98.1 78 18 113/53 Room Air 02/23/17 15:50 97 21 Intake and Output 02/23/17 02/23/17 02/24/17 15:00 23:00 07:00 Intake Total 1095 ml Output Total 500 ml 1000 ml Balance 595 ml -1000 ml Exam Constitutional: alert, oriented, well developed Psych: nl mood/affect, no complaints Head: atraumatic, normocephalic Eyes: EOMI, nl conjunctiva, nl lids, nl sclera ENMT: mucosa pink and moist, nl external ears & nose, nl lips & teeth, nl nasal mucosa & septum Neck: non-tender, supple Respiratory: clear to auscultation, normal air movement Cardiovascular: nl pulses, regular rate and rhythm Gastrointestinal: nl liver, spleen, non-tender, soft Musculoskeletal: nl extremities to inspection, nl gait and stance Extremities: normal pulses Neurological: GRASSLAND CONSERVATIONIST II-XII intact, nl mental status, nl speech, nl strength Skin: nl turgor, rash or lesions Lymph: nl lymph nodes Results Result Diagram: 02/23/17 0850 GWEN GOMEZ MD Feb 24, 2017 14:19
[2017-02-24] MEDS ORDERED: BISACODYL (EC) 5 MG TAB PO ONE (14:30)
[2017-02-24 17:40] VITALS: BP 106/55; PULSE 81; RESP 18
[2017-02-24 19:45] VITALS: BP 108/61; PULSE 84; RESP 18
[2017-02-24] MEDS: SENNA/DOCUSATE NA (8.6MG/50MG) TAB PO SCH (21:45)
[2017-02-25] MEDS: HYDROCODONE/APAP (5/325) TAB PO PRN ×3 (00:12→15:33)
[2017-02-25 04:00] VITALS: BP 105/54; PULSE 79; RESP 18
[2017-02-25 08:16] VITALS: BP 101/68; PULSE 85; RESP 18
[2017-02-25] MEDS: SENNA/DOCUSATE NA (8.6MG/50MG) TAB PO SCH (08:32)
[2017-02-25] MEDS ORDERED: MEASLES,MUMPS,RUBELLA VACCINE INJ SC* ONE (09:00)
[2017-02-25] MEDS ORDERED: DIPHTH/TET/ACEL PERTUSS (ADULT) 0.5 ML VIAL IM* ONE (09:00)
--- NOTE | 2017-02-25 11:48 | PD.PPDC ---
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
--- NOTE | 2017-02-25 11:56 | DS ---
Date/Time of Note Date/Time of Note DATE: 02/25/17 TIME: 11:49 Discharge Summary Admission/Discharge Info Admit Date/Time Feb 20, 2017 at 19:55 Discharge Date/Time February 25, 2017 Discharge Diagnosis Term . failure to progress in labor. heart tones decelerations. large fibroid uterus. Primary low segment transverse section Patient Condition: Good Procedures Primary Hx of Present Illness 31 years old black female with the first . In labor with augmentation, no progress of labor. Variable decelerations observed. Patient with large fibroid uterus. Primary section was offered Hospital Course She did very good after the surgery she was afebrile. She was ambulatory, passing gases, tolerating diet . a clean incision with lochia that is fairly normal and with normal extremities. no leg edema and normal reflexes. She has been doing well with the pain, controlled with p.o. medication. She is being sent home on her third postoperative day, stable and in good condition. Prescription was given for ibuprofen and [place] as needed. Home Meds Reported Medications Folic Acid* (Folic Acid*) 1 Mg Tablet, 1 MG PO DAILY, TAB 02/08/17 Multivit/Min/Fol Ac/Iron/Pren* ( S*) 1 Tab Tab, 1 TAB PO DAILY, TAB 02/08/17 Follow-up Plan 1 week in my office Primary Care Provider GWEN Horowitz MD Feb 25, 2017 11:56
== END 2017-02-25 18:42 | disposition home or self-care (01) | DRG 766 ==
LOC: EDSTATUS 19:53 → L-D 19:55 → PP1 02-22 13:47
PROVIDERS: ADMIT Obstetrics & Gynecology; ATTEND Obstetrics & Gynecology
PROC: 10D00Z1 Extraction of Products of Conception, Low, Open Approach (ICD-10-PCS; principal; 2017-02-22 10:00)
DX: O76 Abnormality in fetal heart rate and rhythm complicating labor and delivery (principal); D25.9 Leiomyoma of uterus, unspecified; O65.5 Obstructed labor due to abnormality of maternal pelvic organs; O34.593 Maternal care for other abnormalities of gravid uterus, third trimester; Z3A.40 40 weeks gestation of pregnancy; O34.13 Maternal care for benign tumor of corpus uteri, third trimester; Z37.0 Single live birth; O69.81X0 Labor and delivery complicated by cord around neck, without compression, not applicable or unspecified
CPT/HCPCS: 36415; 36600; 62319; 82803; 85025; 85610; 85730; 86592; 86900; 86901; 87340; 90715; 94760; 99464; J0690; J1100; J1885; J2274; J2405; J2590; J3010; J7120